=== PATIENT | male | born 1950 | race Caucasian/White ===

== ENCOUNTER 2024-10-16 13:46 | Outpatient (CLI) | payer MEDICARE, OTHER, SELFPAY ==
--- NOTE | ~2024-10-16 | MR_ITS ---
EXAMINATION: MR pituitary wo/w con DATE: 10/16/2024 14:54 INDICATION: Bitemporal visual field defects TECHNIQUE: Magnetic resonance imaging (MRI) of the brain and brainstem was performed without and with 20 mL Multihance intravenous contrast. Whole-brain sequences included sagittal T1-weighted FSE, axia l diffusion-weighted FS EPI, axial 3D SWAN, axial T2-weighted FLAIR Propeller, and axial T2-weighted Propeller. Small [id number] sequences included sagittal and coronal T1-weighted FSE centered at th e pituitary. Postcontrast sequences included small [id number] coronal T1-weighted FSE in a time c ourse and sagittal T1-weighted FSE and whole-brain axial T1-weighted FSE. Apparent diffusion coeffici ent (ADC) maps were created. COMPARISON: None. FINDINGS: There are no areas of restricted diffusion to suggest acute infarction. No intracranial hemorrhage or abnormal intracranial mass lesion. The pituitary is normal in size with no abnormal extension above the sella. There is minimal rightward deviation of the otherwise normal distal pituitary stalk. No ab normally enhancing pituitary lesions identified although there is mild motion artifact and sensitivit y is decreased for several small microadenomas. The suprasellar cistern is patent with no evident les ions abutting the optic chiasm which appears unremarkable. There are a few scattered small foci of no nspecific increased T2-weighted signal intensity in the cerebral white matter, predominantly involvin g the deep and periventricular white matter. There are no intraparenchymal signal abnormalities seen on the other pulse sequences. The ventricles are symmetric and normal in size. There are no abnormal extra-axial fluid collections. Flow voids are seen in the cerebral arteries on the T2-weighted sequen yesenia consistent with their expected patency. Mild mucoperiosteal thickening the bilateral ethmoid sinu ses. Visualized orbits and soft tissues are unremarkable. There are no areas of abnormal enhancement on the post contrast images. IMPRESSION: 1. No acute intracranial process. 2. Unremarkable optic chiasm with no evident pituitary macroadenoma or other mass lesions at the supr apatellar cistern. Reviewed, dictated and finalized at location A. IMPRESSION: 1. No acute intracranial process. 2. Unremarkable optic chiasm with no evident pituitary macroadenoma or other ma ss lesions at the suprapatellar cistern.
--- OUTSIDE RECORDS SUMMARY | 2024-10-16 14:16 | XMS_ITS | Clinical Summary ---
Author Organization [facility] Address [address] [place] [address] Phone Care Team Providers Care Tool Maintenance Technician Name Role Phone Provider, Unknown Primary Care Provider Unavaila ble Allergies No known active allergies Medications metFORMIN (GLUCOPHAGE-XR ) 750 MG TABLET SR 24 HR Take 750 mg by mouth daily. This RX is for Metformin SR. Active atorvastatin (LIPITOR) 10 MG Tablet Take 10 mg by mouth daily. Active acetaminophen (TYLENOL) 500 MG Tablet Take 1 Tab by mouth every 6 hours as needed for Pain or Fever (for temperature greater than 100.4 F). Do not exceed 3000 mg of acetaminophen in 24 hour from all sources. 6 Active Active Problems Problem Noted Date Diagnosed Date Carpal tunnel syndrome, right 06/06/2015 Family History Medical History Relation Name Comments No Known Problems Father No Known Problems Mother Relation Name Status Comments Father Mother Social History Tobacco Use Types Packs/Day Years Used Date Smoking Tobacco: Former Cigarettes Q uit: 11/05/1985 Smokeless Tobacco: Never Alcohol Use Standard Drinks/Week Comments No 0 (1 standard drink = 0.6 oz pur e alcohol) Sex and Gender Information Value Date Recorded Sex Assigned at Not on file Legal Sex Male 9:29 AM CDT Gender Identity Not on file Sexual Orientation Not on file Last Filed Vital Signs Vital Sign Reading Time Taken Comments Blood Pressure 130/70 06/06/2015 5:42 PM CDT Pulse 51 06/06/2015 5:42 PM CDT Temperature 35.8 C (96.4 F) 06/06/2015 5:42 PM CDT Respiratory Rate 16 06/06/2015 5:42 PM CDT Oxygen Saturation 96% 06/06/2015 5:42 PM CDT Inhaled Oxygen Concentration - - Weight 113.4 kg (250 lb) 06/02/2015 9:00 AM CDT Height 177.8 cm (5' 10) 06/02/2015 9:00 AM CDT Body Mass Index 35.87 06/02/2015 9:00 AM CDT Plan of Treatment Health Maintenance Due Date Last Done Comments Hepatitis C Virus (HCV) Screening 1950 TdaP Immunization 1950 Cologuard 07/09/1995 Colonoscopy 07/09/1995 Colorectal Cancer Screening 07/09/1995 Immunochemical Fecal Occult Blood 07/09/1995 Pneumococcal Immunization (5 0+ years) (1 of 1 - PCV) 2000 Zoster Immunization (1 of 2) 2000 SARS-COV-2 Immunization (1 - 2023- season) 2023 Influenza Immunization (#1) 2024 Respiratory Syncytial Virus (RSV) Immunization (Adult) (1 - 1-dose 75+ series) 2025 Hepatitis B Immunization Aged Out No longer eligible based on patient's age to complete this topic Human Papillomavirus (HPV) Immunization Aged Out No longer eligible b ased on patient's age to complete this topic Meningococcal Immunization (ACWY) Aged Out No longer eligible based on patient's age to complete this topic Rotavirus Immunization Aged Out No lo nger eligible based on patient's age to complete this topic Insurance [employer] Care Teams Tool Maintenance Technician Relationship Specialty Start Date End Date Provider, Unknown UNKNOWN PCP - General 05/20/15
--- OUTSIDE RECORDS SUMMARY | 2024-10-16 14:16 | XMS_ITS | Clinical Summary ---
Author Organization [facility] Address [address] [place] [id number] Care Team Providers Care Angle Furnaceman Name Role Phone Unavailable Primary Care Provider Unavailabl e Social History Tobacco Use Types Packs/Day Years Used Date Smoking Tobacco: Never Assessed Sex and Gender Information Value Date Recorded Sex Assigned at Not on file Legal Sex Male 7:49 PM CDT Gender Identity Not on file Sexual Orientation Not on file Plan of Treatment Health Maintenance Due Date Last Done Comments Colorectal Cancer Screening Colonoscopy (10 Years) 1950 Hepatitis C 1968 DTaP, Tdap and Td Vaccines ( 1 - Tdap) 1969 Pneumococcal Vaccine: 50+ Ye ars (1 of 1 - PCV) 2000 Zoster Vaccines (1 of 2) 2000 Annual Medicare Wellness Visit 07/09/2015 COVID-19 Vaccine ( - 2023-2 5 season) 2023 RSV Immunization or 60+ Years (1 - 1-dose 75+ series) 2025 Meningococcal B Vaccine Aged Out No l onger eligible based on patient's age to complete this topic Meningococcal Vaccine Aged Out No conor maykel eligible based on patient's age to complete this topic RSV Immunizations Under 20 Months Aged Out No longer eligible based on patient's age to complete this [place] [address] MEDICARE
== END 2024-10-16 13:47 | disposition home or self-care (01) ==
DX: Z01.89 Encounter for other specified special examinations (principal); H53.8 Other visual disturbances
CPT/HCPCS: 70553; A9577